=== PATIENT | female | born 1990 | race African-American/Black ===

== ENCOUNTER 2016-08-22 19:20 | Emergency (ER) | payer OTHER, MEDICAID ==
[~2016-08-22] VITALS: Ht 162.6 cm; Wt 86.2 kg
[~2016-08-22 19:20] MED LIST: GLUCOPHAGE850 MG PO; HYDROXYZINE HCL25 M1 PO; LEXAPRO20 MG PO; SYNTHROID0.025 MG PO; TRICOR48 MG PO; [UNRECOGNIZED DRUG - OTHER]
[2016-08-22 19:31] VITALS: BP 120/70
[2016-08-22] MEDS ORDERED: ONDANSETRON 4 MG ODT PO ONE (19:50)
--- NOTE | 2016-08-22 20:31 | NUR ---
PATIENT PRESENTS TO ED WITH C/O N/V/D . SKIN IS PINK/WARM/DRY; AAOX4 WITH EVEN AND STEADY GAIT; LUNGS CLEAR BL; HR EVEN AND REGULAR; PT DENIES ANY FEVER, CP, SOB, OR COUGH AT THIS TIME; PATIENT STATES PAIN OF 0/10 AT THIS TIME; VSS; PATIENT POSITIONED FOR COMFORT; HOB ELEVATED; BEDRAILS UP X2; BED DOWN. ER MD MADE AWARE OF PT STATUS.
--- NOTE | 2016-08-22 20:51 | NUR ---
Dr. Jasso evaluating patient at bedside.
--- NOTE | 2016-08-22 21:11 | NUR ---
STOOL COLLECTED FOR LAB
--- NOTE | 2016-08-22 21:14 | NUR ---
Patient discharged with v/s stable. Written and verbal after care instructions given and explained. Patient alert, oriented and verbalized understanding of instructions. Ambulatory with steady gait. All questions addressed prior to discharge. ID band removed. Patient advised to follow up with PMD. Rx of CIPRO AND IMODIUM given. Patient educated on indication of medication including possible reaction and side effects. Opportunity to ask questions provided and answered.
[2016-08-22 21:15] VITALS: BP 111/86
== END 2016-08-22 21:14 | disposition home or self-care (01) ==
LOC: MED 19:20
DX: R19.7 Diarrhea, unspecified (principal); J45.909 Unspecified asthma, uncomplicated; E11.9 Type 2 diabetes mellitus without complications
CPT/HCPCS: 81002; 81025; 99283; S0119

== ENCOUNTER 2019-03-25 07:32 | Emergency (ER) | payer OTHER ==
[~2019-03-25] VITALS: Ht 167.6 cm; Wt 86.2 kg
[~2019-03-25 07:32] MED LIST changes: +ESCI20TA PO; -GLUCOPHAGE850 MG PO; +HYDR-3623 PO; -HYDROXYZINE HCL25 M1 PO; -LEXAPRO20 MG PO; +METF850T PO; +SYN.025 PO; -SYNTHROID0.025 MG PO; +TRI48 PO; -TRICOR48 MG PO; -[UNRECOGNIZED DRUG - OTHER]
[2019-03-25 07:39] VITALS: BP 126/77
[2019-03-25 08:39] VITALS: BP 126/77
--- NOTE | 2019-03-25 08:42 | NUR ---
Patient discharged with v/s stable. Written and verbal after care instructions given and explained. Patient alert, oriented and verbalized understanding of instructions. Ambulatory with steady gait. All questions addressed prior to discharge. ID band removed. Patient advised to follow up with PMD. Rx of NYSTATIN given. Patient educated on indication of medication including possible reaction and side effects. Opportunity to ask questions provided and answered.
== END 2019-03-25 08:42 | disposition home or self-care (01) ==
LOC: MED 07:32
DX: L08.9 Local infection of the skin and subcutaneous tissue, unspecified (principal)
CPT/HCPCS: 99283

== ENCOUNTER 2019-04-13 07:29 | Emergency (ER) | payer OTHER ==
[~2019-04-13] VITALS: Ht 162.6 cm; Wt 81.6 kg
--- NOTE | 2019-04-13 07:34 | NUR ---
Patient ambulated to bed 9. RN evaluating patient at bedside.
[2019-04-13 07:38] VITALS: BP 108/64
--- NOTE | 2019-04-13 07:39 | NUR ---
29 Y/O F WITH C/C OF RASH ON BILATERAL LOWER BREAST AREA X1 WEEK. PER PT DID NOT EAT OR TOUCHED ANYTHING DIFFERENT THAT MIGHT HAVE CAUSED IT. PER PT NKA. NO MEDICAL HX. NO RX; EXCEPT CREAM FOR RASH PRN WHICH PER PT DID NOT WORK. MEDICATION AT BEDSIDE. DENIES N/V/D. SIDE RAIL X1. FAMILY AT BEDSIDE.
--- NOTE | 2019-04-13 08:00 | NUR ---
Dr. Romeo is evaluating the patient at bedside.
--- NOTE | 2019-04-13 08:01 | NUR ---
MD MCKEON AT BEDSIDE
[2019-04-13 08:13] VITALS: BP 108/64
--- NOTE | 2019-04-13 08:13 | NUR ---
Patient discharged with v/s stable. Written and verbal after care instructions given and explained. Patient alert, oriented and verbalized understanding of instructions. Ambulatory with steady gait. All questions addressed prior to discharge. ID band removed. Patient advised to follow up with PMD. Rx of KETOCONAZOLE given. Patient educated on indication of medication including possible reaction and side effects. Opportunity to ask questions provided and answered.
== END 2019-04-13 08:13 | disposition home or self-care (01) ==
LOC: MED 07:29
DX: L30.4 Erythema intertrigo (principal); Z79.899 Other long term (current) drug therapy; Z79.84 Long term (current) use of oral hypoglycemic drugs
CPT/HCPCS: 99282; 99283

== ENCOUNTER 2019-09-06 14:15 | Emergency (ER) | payer OTHER ==
[~2019-09-06] VITALS: Ht 162.6 cm; Wt 84.4 kg
[2019-09-06 14:20] VITALS: BP 121/63
--- NOTE | 2019-09-06 14:33 | NUR ---
PT AMBULATED TO ER BED 06
--- NOTE | 2019-09-06 14:33 | NUR ---
PT UNALBE TO PROVIDE URINE SAMPLE AT THIS TIME, PT GIVEN A URINE CUP.
--- NOTE | 2019-09-06 14:35 | NUR ---
PT PRESENTS FOR NAUSEA, VOMITING, AND WATERY DIARRHEA SINCE LAST NIGHT AFTER BURKINAN INTAKE. DENIES COUGH, SORE THROAT, RUNNY NOSE, FEVER, CP, SOB, OR SICK CONTACTS. SKIN IS PINK/WARM/DRY; AAOX4 WITH EVEN AND STEADY GAIT; PATIENT STATES PAIN OF 0/10 AT THIS TIME; VSS; PATIENT POSITIONED FOR COMFORT; HOB ELEVATED; BEDRAILS UP X1; BED DOWN. ER MD MADE AWARE OF PT STATUS.
--- NOTE | 2019-09-06 14:39 | NUR ---
JEAN CLAUDE CARPENTER AT BEDSIDE.
[2019-09-06] MEDS ORDERED: NACL 0.9% 1,000 ML IV ONE (14:45)
[2019-09-06] MEDS ORDERED: ONDANSETRON 4 MG/2 ML VIAL IVP ONE (14:45)
--- NOTE | 2019-09-06 15:43 | NUR ---
JAYDEN SILVERIO IS RE-EVALUATING PT AT BEDSIDE.
[2019-09-06] MEDS ORDERED: METOCLOPRAMIDE 10 MG TAB PO ONE (16:05)
--- NOTE | 2019-09-06 16:09 | NUR ---
PER PA CARPENTER PO CHALLENGE PT GIVEN APPLE JUICE AND REGLAN PO.
[2019-09-06 16:31] VITALS: BP 121/64
--- NOTE | 2019-09-06 16:31 | NUR ---
Patient discharged with v/s stable. Written and verbal after care instructions given and explained. Patient alert, oriented and verbalized understanding of instructions. Ambulatory with steady gait. All questions addressed prior to discharge. ID band removed. Patient advised to follow up with PMD. Rx of Zofran, Bentyl, and Reglan given. Patient educated on indication of medication including possible reaction and side effects. Opportunity to ask questions provided and answered.
== END 2019-09-06 16:31 | disposition home or self-care (01) ==
LOC: MED 14:15
DX: R11.2 Nausea with vomiting, unspecified (principal); R10.9 Unspecified abdominal pain; Z79.899 Other long term (current) drug therapy
CPT/HCPCS: 81002; 81025; 82948; 96361; 96374; 99283; J2405; J7030; J8597

== ENCOUNTER 2019-09-07 21:57 | Emergency (ER) | payer OTHER ==
[~2019-09-07] VITALS: Ht 162.6 cm; Wt 84.1 kg
--- NOTE | 2019-09-07 22:02 | NUR ---
PT TAKEN TO BED 6
[2019-09-07] MEDS ORDERED: NACL 0.9% 500 ML IV ONE (22:03)
--- NOTE | 2019-09-07 22:03 | NUR ---
PT MOM'S NAME IS EDWIGE, # [phone]
[2019-09-07] MEDS ORDERED: KETOROLAC 30 MG/ML VIAL IVP ONE ×2 (22:05→23:40)
[2019-09-07] MEDS ORDERED: ONDANSETRON 4 MG/2 ML VIAL IVP ONE (22:05)
--- NOTE | 2019-09-07 22:05 | NUR ---
29 YO F BIB SELF FOR C/C OF 8/10 ABDOMINAL PAIN WITH N/V X 2DAYS. PT WAS SEEN IN [facility] YESTERDAY FOR SAME REASON AND RETURNED WITH WORSENING SYMPTOMS. PT STATES THAT SHE HAS NOT BEEN ABLE TO EAT/DRINK OR HAVE A BM IN 2 DAYS. BOWEL SOUNDS ARE NORMOACTIVE THROUGHOUT. FIRST DAY OF LMP WAS TODAY. PER PT- ABDOMINAL CRAMPING DUE TO MENSTRAL CYCLE HAS WORSENED PT SYMPTOMS. DENIES FEVER, COUGH, SOB, AND TRAVEL. BED LOCKED AND IN LOWEST POSITION. SIDE RAILS X1. NKA NO RX NO MED HX
[2019-09-07 22:06] VITALS: BP 130/81
--- NOTE | 2019-09-07 22:21 | NUR ---
Dr. Lora examining patient.
[2019-09-07] MEDS ORDERED: HALOPERIDOL IM 5 MG/ML VIAL IVP ONE (22:35)
[2019-09-07] MEDS ORDERED: diphenhydrAMINE 50 MG/ML VIAL IVP ONE (22:35)
[2019-09-07 22:44] LABS: BASOPHILS # (AUTO) 0.1 K/uL (0.00-0.22); BASOPHILS % (AUTO) 0.9 % (0.0-2.0); EOSINOPHILS # (AUTO) 0.1 K/uL (0-0.4); HEMATOCRIT 43.4 % (36-48); HEMOGLOBIN 14.7 g/dL (12.0-16.0); LYMPHOCYTES # (AUTO) 3.1 K/uL (2.5-16.5); LYMPHOCYTES % (AUTO) 26.2 % (20.5-51.1); MEAN CORPUSCULAR HEMOGLOBIN 27 pg (27-31); MEAN CORPUSCULAR HGB CONC 34 g/dL (33-37); MEAN CORPUSCULAR VOLUME 78.4 fL (80-94); MONOCYTES # (AUTO) 0.7 K/uL (0.8-1.0); MONOCYTES % (AUTO) 5.5 % (1.7-9.3); NEUTROPHILS # (AUTO) 7.9 K/uL (1.8-7.7); NEUTROPHILS % (AUTO) 66.4 % (42.2-75.2); PLATELET COUNT (AUTO) 376 K/uL (140-450); RED BLOOD CELL COUNT(AUTO) 5.54 MIL/uL (4.20-5.40); RED CELL DISTRIBUTION WIDTH 15.6 % (11.6-13.7); WHITE BLOOD COUNT (AUTO) 11.8 K/uL (4.8-10.8)
--- NOTE | 2019-09-07 23:00 | NUR ---
PT STATES HER PAIN HAS REDUCED FROM 8/10 TO 5/10. RESTING COMFORTABLY IN BED.
[2019-09-07 23:02] LABS: ALBUMIN 4.5 g/dL (3.4-5.0); ANION GAP 14.3 (8-16); CARBON DIOXIDE 26.3 mmol/L (21-32); CREATININE 0.8 mg/dL (0.6-1.3); POTASSIUM 3.6 mmol/L (3.5-5.1); TOTAL BILIRUBIN 0.5 mg/dL (0.0-1.0)
--- NOTE | 2019-09-07 23:15 | NUR ---
PT RETURN FROM CT
--- NOTE | 2019-09-07 23:34 | NUR ---
PT SLEEPING IN BED. EQUAL CHEST RISE AND FALL. BED LOCKED AND IN LOWEST POSITION.
--- NOTE | 2019-09-07 23:58 | NUR ---
PT ASKING TO GO HOME. I TOLD HER THAT RESULTS OF CT SCAN WILL BE BACK SHORTLY AND WE CAN DC AFTER NORMAL RESULTS.
--- NOTE | 2019-09-08 00:16 | NUR ---
IV removed, catheter intact and site benign. Applied folded 4x4 gauze and tape to stop bleeding.
[2019-09-08 00:17] VITALS: BP 130/81
== END 2019-09-08 00:17 | disposition home or self-care (01) ==
LOC: MED 21:57
DX: R11.15 Cyclical vomiting syndrome unrelated to migraine (principal); R10.84 Generalized abdominal pain; J45.909 Unspecified asthma, uncomplicated; E11.9 Type 2 diabetes mellitus without complications; E03.9 Hypothyroidism, unspecified; F31.9 Bipolar disorder, unspecified; Z79.899 Other long term (current) drug therapy; Z79.84 Long term (current) use of oral hypoglycemic drugs
CPT/HCPCS: 36415; 74176; 80053; 81025; 83690; 85025; 96361; 96374; 96375; 96376; 99284; J1200; J1630; J1885; J2405; J7030

== ENCOUNTER 2019-09-10 09:46 | Emergency (ER) | payer OTHER, SELFPAY ==
[~2019-09-10] VITALS: Ht 162.6 cm; Wt 59.0 kg
--- NOTE | 2019-09-10 09:50 | NUR ---
PT ambulated to ER bed 11
[2019-09-10 09:52] VITALS: BP 134/69
--- NOTE | 2019-09-10 09:55 | NUR ---
PT C/O NASUEA, 3 EPISODES OF VOMITING, AND DIARRHEA SINCE YESTERDAY AFTER EATING WATERMELON. SEEN IN OUR ER 09/06/19-09/07/19 AND DIAGNOSED WITH CYCLIC VOMITING SYDROME AND TREATED WITH ZOFRAN. PT REPORTS SHE CONTINUES WITH NAUSEA AND VOMITING, CURRENTLY ON ZOFRAN W/O ANY RELIEF. PT DENIES ANY FEVER, CP, SOB, OR COUGH AT THIS TIME; PATIENT STATES PAIN OF 0/10 AT THIS TIME; VSS; PATIENT POSITIONED FOR COMFORT; HOB ELEVATED; BEDRAILS UP X1; BED DOWN. ER MD MADE AWARE OF PT STATUS.
--- NOTE | 2019-09-10 10:02 | NUR ---
DR. SCRUGGS IS EVALUATING PT AT BEDSIDE.
[2019-09-10] MEDS ORDERED: PROCHLORPERAZINE 5 MG TAB PO ONE (10:05)
--- NOTE | 2019-09-10 10:10 | NUR ---
pt moved to bed 10
--- NOTE | 2019-09-10 10:26 | NUR ---
COVID SWAB COLLECTED AT BEDSIDE AND SENT TO THE LAB.
[2019-09-10 11:06] VITALS: BP 127/61
--- NOTE | 2019-09-10 11:06 | NUR ---
Patient discharged with v/s stable. Written and verbal after care instructions given and explained. Patient alert, oriented and verbalized understanding of instructions. Ambulatory with steady gait. All questions addressed prior to discharge. ID band removed. Patient advised to follow up with PMD. Rx of Compazine given. Patient educated on indication of medication including possible reaction and side effects. Opportunity to ask questions provided and answered. Covid-19 package provided.
== END 2019-09-10 11:06 | disposition home or self-care (01) ==
LOC: EEVIPCON 09:46 → MED 09:46
DX: R11.2 Nausea with vomiting, unspecified (principal); Z20.828 Contact with and (suspected) exposure to other viral communicable diseases; R10.9 Unspecified abdominal pain; E03.9 Hypothyroidism, unspecified; J45.909 Unspecified asthma, uncomplicated; Z79.899 Other long term (current) drug therapy
CPT/HCPCS: 81002; 81025; 99283; C9803; Q0164; U0003; 36415

== ENCOUNTER 2021-08-02 11:19 | Emergency (ER) | payer OTHER ==
[~2021-08-02] VITALS: Ht 160 cm; Wt 85.7 kg
[2021-08-02 11:23] VITALS: BP 115/70
--- NOTE | 2021-08-02 11:36 | NUR ---
31Y FEMALE BIB SELF DUE TO L LEG PAIN SINCE WEDNESDAY. PT REFERRED FROM URGENT CARE DUE TO POSSIBLE DVT. PT STATED "PAIN FEELS LIKE MUSCLE CRAMP." NO REDNESS/EDEMA/WARMTH NOTED PMH: DANIELA DUENAS
--- NOTE | 2021-08-02 11:36 | NUR ---
DR. MARTINEZ EVALUATING PT
[2021-08-02] MEDS ORDERED: KETOROLAC 15 MG/ML VIAL IM ONE (11:55)
[2021-08-02] MEDS ORDERED: IBUP-2213 PO (11:58)
[2021-08-02] MEDS ORDERED: METH-1681 PO (11:58)
[2021-08-02 12:23] VITALS: BP 115/70
--- NOTE | 2021-08-02 12:24 | NUR ---
Patient discharged with v/s stable. Written and verbal after care instructions given FOR MUSCULOSKELETAL PAIN and explained. Patient alert, oriented and verbalized understanding of instructions. Ambulatory with steady gait. All questions addressed prior to discharge. ID band removed. Patient advised to follow up with PMD. Rx of IBUPROFEN AND ROBAXIN given. Patient educated on indication of medication including possible reaction and side effects. Opportunity to ask questions provided and answered.
== END 2021-08-02 12:23 | disposition home or self-care (01) ==
LOC: MED 11:19
DX: M79.605 Pain in left leg (principal)
CPT/HCPCS: 96372; 99283; J1885